=== PATIENT | female | born 2000 | race Caucasian/White ===

== ENCOUNTER → 2020-06-13 09:33 | Outpatient (BNVA) | payer BC, MEDICAID, SELFPAY | PROVIDERS: Family Provider Nurse Practitioner Family; PCP Nurse Practitioner Family; Visit Provider Obstetrics & Gynecology | DX: Z34.93 Encounter for supervision of normal pregnancy, unspecified, third trimester (principal) | CPT/HCPCS: 81000 ==

== ENCOUNTER → 2020-07-02 10:12 | Outpatient (BNVA) | payer BC, MEDICAID, SELFPAY | PROVIDERS: Family Provider Nurse Practitioner Family; PCP Nurse Practitioner Family; Visit Provider Obstetrics & Gynecology | DX: Z34.90 Encounter for supervision of normal pregnancy, unspecified, unspecified trimester (principal); Z34.80 Encounter for supervision of other normal pregnancy, unspecified trimester; Z34.93 Encounter for supervision of normal pregnancy, unspecified, third trimester | CPT/HCPCS: 81000; 87081; 87086 ==

== ENCOUNTER → 2020-07-09 09:56 | Outpatient (BNVA) | payer BC, MEDICAID, SELFPAY | PROVIDERS: Family Provider Nurse Practitioner Family; PCP Nurse Practitioner Family; Visit Provider Obstetrics & Gynecology | DX: O26.849 Uterine size-date discrepancy, unspecified trimester (principal); Z3A.37 37 weeks gestation of pregnancy | CPT/HCPCS: 81000 ==

== ENCOUNTER → 2020-07-13 16:07 | Outpatient (BNVA) | payer BC, MEDICAID, SELFPAY | PROVIDERS: Family Provider Nurse Practitioner Family; PCP Family Medicine; Visit Provider Obstetrics & Gynecology | DX: Z34.93 Encounter for supervision of normal pregnancy, unspecified, third trimester (principal); Z11.52 Encounter for screening for COVID-19 | CPT/HCPCS: 87635 ==

== ENCOUNTER → 2020-07-16 09:19 | Outpatient (BNVA) | payer BC, MEDICAID, SELFPAY | PROVIDERS: Family Provider Nurse Practitioner Family; PCP Family Medicine; Visit Provider Obstetrics & Gynecology | DX: O26.849 Uterine size-date discrepancy, unspecified trimester (principal); Z3A.38 38 weeks gestation of pregnancy | CPT/HCPCS: 81000 ==

== ENCOUNTER → 2020-07-23 09:10 | Outpatient (BNVA) | payer BC, MEDICAID, SELFPAY | PROVIDERS: Family Provider Nurse Practitioner Family; PCP Family Medicine; Visit Provider Obstetrics & Gynecology | DX: Z34.93 Encounter for supervision of normal pregnancy, unspecified, third trimester (principal) | CPT/HCPCS: 81000 ==

== ENCOUNTER 2020-07-26 11:55 | Inpatient (IN) | payer BC, MEDICAID, SELFPAY ==
[2020-07-26] VITALS (46 sets, daily range): BP systolic 101–146; BP diastolic 55–86; PULSE 76–141; RESP 16; TEMP 36.5–37.6; O2SAT 98–100; BMI 34.4
[2020-07-26] MEDS: dextrose 5%-lactated ringers 1,000 ML 125 ML IV (13:11)
[2020-07-26] MEDS: oxytocin 30 UNIT/500 ML BAG IV (13:15)
[2020-07-26 14:34] LABS: Basophils % 0.3 %; Eosinophils # 0.1 10^3/uL (0.0-0.8); Hematocrit 33.4 % (37.0-47.0); Hemoglobin 10.8 g/dL (11.5-15.3); Lymphocytes % 15.5 %; Mean Corpuscular HGB Conc 32.3 g/dL (30.0-36.0); Mean Corpuscular Hemoglobin 29.1 pg (28.0-34.0); Mean Platelet Volume 13.5 fL (7.4-10.4); Monocytes % 8.2 %; Neutrophils # 9.43 10^3/uL (1.8-8.0); Neutrophils % 74.3 %; Nucleated Red Blood Cells % 0 %; Platelet Count 194 10^3/cmm (130-400); Red Blood Count 3.71 10^6/uL (4.1-5.3); Red Cell Distribution Width 13.8 % (12.1-15.1); White Blood Count 12.7 10^3/uL (4.5-13.0)
[2020-07-26] MEDS: lactated ringers 1,000 ML 999 ML IV (17:35)
--- NOTE | 2020-07-26 18:48 | P.ANESASSM_ITS ---
Pre-Anesthetic Assessment Pre-Anesthetic Assessment: Height/Weight: Height 1.73 m Weight 102.965 kg Temp Pulse BP Pulse Ox 99.7 F H 104 H 126/68 100 07/26/20 18:27 07/26/20 18:44 07/26/20 18:44 07/26/20 18:36 Was Beta Caroline taken within 24 hours: N/A Was Clonidine taken within 24 hours: N/A Social: Social History: No alcohol and No tobacco Exam: Pre-Anes Outpt Exam: alert, oriented x 3, clear to auscultation bilaterally and regular rate & rhythm Airway: Submandibular: WNL Cervical ROM: WNL MP: 2 Dentition: Full History/ROS: No significant history except as noted GI: GI: GERD Anesthetic Plan: ASA status: 2 Other: Labor epidural Risk of > 500 ml blood loss (7ml/kg in children): No Meds/Allergies Current Medications: Current Medications Generic Name Dose Route Start Last Admin Trade Name Freq PRN Reason Stop Dose Admin Dextrose/Lactated Ringer's 1,000 mls @ 125 m ls/hr 07/26/20 12:30 07/26/20 13:11 Dextrose 5%-Lact ated Ringers IV 125 mls/hr .Q8H DENIA Administration Oxytocin 30 unit in 500 ml s @ 1 mls/hr 07/26/20 12:30 07/26/20 16:51 Pitocin IV 9 milliunit/min .Q24H DENIA 9 mls/hr Titration Protocol 1 MILLIUNIT/MIN PFSH Anesthesia PFSH: Family History Father Asthma Grandmother Breast cancer Paternal CAD (coronary artery disease) Maternal Family/Other Breast cancer Aunt Mother Psychiatric illness bipolar, addiction Alcohol abuse Depression Anxiety Grandfather Pancreatic cancer maternal Social History (Updated 07/23/20 @ 09:04 by Conchita Guzman) Quit status (tobacco): has quit using tobacco Former quit date comment: Previous vape user Alcohol intake: never Female Reproductive History: : 1 Data Anesthesia CBC & Chem 7: 07/26/20 12:50 Other Labs: Laboratory Results - last 48 hr 07/26/20 12:50 WBC 12.7 RBC 3.71 L Hgb 10.8 L Hct 33.4 L MCV 90.0 MCH 29.1 MCHC 32.3 RDW 13.8 Plt Count 194 MPV 13.5 H Neut % (Auto) 74.3 Lymph % (Auto) 15.5 [place] % (Auto) 8.2 Eos % (Auto) 1.0 Baso % (Auto) 0.3 Neut # (Auto) 9.43 H Lymph # (Auto) 2.0 [place] # (Auto) 1.0 H Eos # (Auto) 0.1 Baso # (Auto) 0.0 Nucleated RBC % (auto) 0 Nucleated RBCs # 0.0 Cardiac Studies: No Data to Display
--- NOTE | 2020-07-26 18:49 | ANES.PROC ---
Anesthesia Procedures Procedure/Date: 07/26/20 Epidural: Time Out Performed: Yes Consents Signed: Procedure Consent Consent: requested by attending/covering physician, from patient, risks and benefits reviewed and patient agrees to proceed Lumbar Level: L3-L4 Epidural position: sitting Epidural procedure: sterile prep of area, 1% lidocaine to numb the area, 18 g needle, neg for paresthesia, test dose given, 1.5% xylocaine 1:200k epi, placed PCEA, no systemic response, sterile dressing applied and 0.2% Ropiavacaine @ mls/hr (13) Additional Comments: ALEXY at 5cm, cath at 10cm. Bolused 5mls of 2% lidocaine PF.
--- NOTE | 2020-07-26 19:05 | PM.OBGYHP ---
Providers/Chief Complaint Admitting Physician: Tish Jennings MD Primary Care Provider: Mars Prabhakar MD Chief Complaint: IUP HPI CLINICAL RESEARCH MANAGER History of Present Illness Priscila Posadas is a 20 year old G1 female at 39 3/7 weeks who is being admitted for induction of labor. Her is complicated by large for gestational age and borderline polyhydramnios. Present Details : 1 Para: 0 Labs Rubella: Immune RPR: Negative GBS: Negative Review of Systems General: Reports: 10 or more systems reviewed and unremarkable except in HPI and below Medications/Allergies Home Medications Medication Instructions Recorded Confirmed Last Taken Type vitamins no.119-iron tab PO 06/06/20 07/23/20 Unknown History fumarate 29 mg-folic acid 1 mg tablet esomeprazole magnesium 20 mg 20 mg PO DAILY 06/13/20 07/23/20 Unknown History capsule,delayed release Allergies Allergy/AdvReac Type Severity Reaction Status Date / Time No Known Allergies Allergy Verified 07/23/20 09:03 PFSH CLINICAL RESEARCH MANAGER PFSH: Family History Father Asthma Grandmother Breast cancer Paternal CAD (coronary artery disease) Maternal Family/Other Breast cancer Aunt Mother Psychiatric illness bipolar, addiction Alcohol abuse Depression Anxiety Grandfather Pancreatic cancer maternal Social History (Updated 07/23/20 @ 09:04 by Conchita Guzman) Quit status (tobacco): has quit using tobacco Former quit date comment: Previous vape user Alcohol intake: never Other Female Reproductive History: Hx Age of Menarche: 11 Duration of menses: other (differs everytime) Date of Last Menstrual Period: 10/24/19 Cycle Length: irregular Menstrual flow: normal/abnormal: normal History History History 1 Term 0 Miscarriages/Ectopic 0 0 Living Children 0 Care KIERAN Calculator Estimated Delivery Date Method Current WG Current Estimate 07/30/20 LMP (Certain) 39w 3d Other Estimates 07/17/20 Ultrasound #1 41w 2d Expected Delivery Route/Plan vaginal Specific Issues/Plans limited care Vitals/I&O/Wt Last Vital Signs Temp 99.7 F H 07/26/20 18:27 Pulse 102 H 07/26/20 18:56 BP 111/57 07/26/20 18:56 Pulse Ox 100 07/26/20 18:36 07/26/20 07/26/20 07/26/20 06:59 14:59 22:59 Intake Total 4.20 / 4.20 13.850 / 18.050 Balance 4.20 / 4.20 13.850 / 18.050 Weight last 48 hrs Weight 227 lb Physical Exam Const: COMMON NORMALS: no acute distress, patient oriented x3, no limitations, healthy appearing, alert and well nourished GENERAL APPEARANCE: cooperative, comfortable, well kempt and well developed ORIENTATION/CONSCIOUSNESS: Yes awake, Yes oriented to person, Yes oriented to place and Yes oriented to time Neck/C-Spine: COMMON NORMALS: full ROM, no lymphadenopathy and supple Resp: COMMON NORMALS: normal respiratory effort, No retractions, No use of accessory muscles and clear to auscultation bilaterally EFFORT & INSPECTION: Yes able to speak in complete sentences Cardio: COMMON NORMALS: no JVD, regular rate and regular rhythm RATE: regular rate RHYTHM: regular rhythm GI: COMMON NORMALS: Normal to inspection, nondistended, normoactive bowel sounds present : MANUAL OB EXAM: dilated 3 cm, effaced 75% and station 0 Extremity: COMMON NORMALS: normal to inspection, full ROM and no clubbing, cyanosis or edema Psych: COMMON NORMALS: mental status grossly normal, Normal thought process present, cooperative, normal affect and speech normal APPEARANCE: Yes grossly normal and Yes well kempt ATTITUDE: Yes calm and Yes engaged ACTIVITY/MOTOR BEHAVIOR: Yes appropriate eye contact SPEECH: Yes normal speech Data : 07/26/20 12:50 A&P Assessment and plan (1) Normal in third trimester: admit for pitocin induction anticipate Status: Acute Attestations Medical Necessity Statement*: The patient is admitted inpatient one way or another, this baby will be born during this visit. Coding Level of Care Code Acute Wood Fuel Pelletizer for Chg Fwd Diagnoses Normal in third trimester Z34.93
[2020-07-26] MEDS: ondansetron 2 mg/ML SDV 2 mL 4 MG IVP (20:44)
[2020-07-27] VITALS (29 sets, daily range): BP systolic 99–140; BP diastolic 54–86; PULSE 20–157; RESP 16; TEMP 35.5–37.8; O2SAT 82
--- NOTE | 2020-07-27 00:46 | PM.DELIVERY ---
Delivery Note: Date of delivery: July 27, 2020 Pre-delivery diagnoses: IUP at 39 weeks, borderline polyhydramnios, large for gestational age Post-delivery diagnoses: same with macrosomia Procedure: Op report anesthesia: Epidural Delivering Physician: artemio Estimated blood loss (mL): 25 Delivery: The patient had complete cervical dilation and began pushing. She had spontaneous delivery of a term female in the CADY presentation, under epidural anesthesia, and over an intact perineum. The head delivered in the shoulders and body followed atraumatically. The baby was placed onto the mother's abdomen. The cord was allowed to pulse for 1 minute and then it was clamped and cut. Cord blood was obtained. An intact placenta delivered spontaneously. Inspection revealed a second-degree vaginal laceration. This was repaired in the usual fashion. There was excellent hemostasis post delivery. Apgars on baby 9 at 1 minute and 9 at 5 minutes. Weight on baby 10 pounds 1 ounce. Estimated blood loss 25 mL. Mother and were stable post delivery. A&P Assessment and plan (1) Normal in third trimester: Status: Acute Coding Level of Care Code Acute Preparation Room Worker for Chg Fwd Diagnoses Normal in third trimester Z34.93
[2020-07-27] MEDS: prenatal vitamin Capsule 1 CAP PO (08:42)
[2020-07-27] MEDS: docusate sodium 100 mg Capsule PO ×2 (08:42→18:29)
[2020-07-27] MEDS: ibuprofen 800 mg tablet PO ×3 (08:42→21:05)
[2020-07-27 14:02] LABS: Hematocrit 30.6 % (37.0-47.0); Hemoglobin 9.8 g/dL (11.5-15.3); Mean Corpuscular Hemoglobin 29.1 pg (28.0-34.0); Mean Corpuscular Volume 90.8 fL (81-99); Mean Platelet Volume 12.9 fL (7.4-10.4); Platelet Count 175 10^3/cmm (130-400); Red Blood Count 3.37 10^6/uL (4.1-5.3); Red Cell Distribution Width 13.9 % (12.1-15.1); White Blood Count 14.1 10^3/uL (4.5-13.0)
--- NOTE | 2020-07-27 22:24 | PC.NURSE ---
pt requested a nipple shield due to nipple pain when nursing. Pt had a Hakaa style shield at bedside. We discussed reasons nipple knutson are used, different styles, why she may be feeling discomfort. pt chose to try a madela nipple shield. Baby was put to the breast with a 24mm shield, baby did suckle some but was very agitated at the breast. After several attempts I asked mom if we could try without the shield again. She repositioned baby and with hand over hand she was able to achieve a more comfortable latch. We discussed positioning of baby, what to look for in a deep latch.
[2020-07-28] VITALS (8 sets, daily range): BP systolic 133–143; BP diastolic 76–89; PULSE 72–105; RESP 16–18; TEMP 36.1–36.8; O2SAT 98–99
--- NOTE | 2020-07-28 07:56 | PC.NURSE ---
Patient pressed call light and telegraphic typewriter operator chief to room. Patient requesting a physician come in and see her this morning to send her home as she is very uncomfortable being in the hospital right now. Patient states she needs to be at home where she has bottles because her nipples are very sore. Patient offered and provided bottles at this time. Will continue to monitor and follow up as needed.
[2020-07-28] MEDS: ibuprofen 800 mg tablet PO (08:48)
[2020-07-28] MEDS: prenatal vitamin Capsule 1 CAP PO (08:48)
[2020-07-28] MEDS: docusate sodium 100 mg Capsule PO (08:48)
--- NOTE | 2020-07-28 15:01 | PM.DCS ---
Discharge Providers Date of Admission: 07/26/20 11:55 Date of Discharge: July 28, 2020 Attending Provider at Admission: Tish Jennings MD Attending Provider at Discharge: Tish Jennings MD Primary Care Provider: Mars Prabhakar MD Diagnoses at Discharge Discharge Diagnosis (1) Normal in third trimester: Status: Acute Reason for Visit Reason for Visit: IUP Brief History: Admission diagnosis: 20-year-old 1 para 0 at 39 weeks and 3 days Active labor Mild anemia Discharge diagnosis: Status post vaginal delivery Mild anemia HOSPITAL COURSE: She underwent an uncomplicated vaginal delivery on 07/27/2020--please see Dr. Jennings's note for details.. She did well on day 0 and was ambulating well, tolerating regular diet, voiding freely, passing flatus. She was breast and bottlefeeding without difficulty and bonding well with her daughter. Pain was well-controlled with by mouth pain medication. She denied nausea, vomiting, fever, chills, shortness of breath, leg pain. She had moderate vaginal bleeding. On day # 1 she continued to do well with stable vital signs and stable hemoglobin at 9.8. She was discharged home on day 1 in a stable condition, as she desired early discharge. Warning signs for endometritis, mastitis, DVT/PE were reviewed with her. Post delivery activity restrictions were also reviewed with her at all her questions were answered to her satisfaction. EXAM AT DISCHARGE: Gen.: No acute distress Heart: S1-S2 heard, regular rate and rhythm Lungs: Clear to auscultation bilaterally Abdomen: Soft, fundus firm below umbilicus, Legs: No calf tenderness, +1 bilateral pitting pedal edema. CONDITION AT DISCHARGE: Stable This documentation was created by [employer] forging dies final finisher software (known for inherent forging dies final finisher error). Every effort was made to assure accuracy of forging dies final finisher. Any obvious errors or omissions should be clarified with the author of the document. Physical Exam Urinary Catheter Management^: Walker: Cath Placed During This Visit: yes, but has since been removed by the nurse Reason for Continuing Indwelling Catheter: Required Immobilization for Trauma or Surgery or Anesthesia Urinary Catheter Date of Insertion: 07/26/20 Urinary Catheter Time of Insertion: 19:05 Date Urinary Catheter Removed: 07/26/20 Time Urinary Catheter Discontinued: 23:25 Discharge Data Vitals: Last Vital Signs Temp 98.3 F 07/28/20 13:15 Pulse 92 07/28/20 14:56 Resp 16 07/28/20 13:15 BP 143/88 07/28/20 14:56 Pulse Ox 98 07/28/20 13:15 Discharge Plan Discharge Patient Disposition: Home Condition: Stable Prescriptions: New ibuprofen 800 mg tablet 800 mg PO Q8H Qty: 30 RF: 0 hydrocodone-acetaminophen 5-325 mg tablet 1 tab PO Q6H Qty: 15 RF: 0 docusate sodium 100 mg Capsule 100 mg PO BID PRN (Reason: constipation) Qty: 30 RF: 0 Continued esomeprazole magnesium [Nexium 24HR] 20 mg capsule,delayed release(DR/EC) 20 mg PO DAILY RF: 0 PNV 119-iron fum-folic acid 29 mg iron- 1 mg tablet PO RF: 0 Discharge Orders: Discharge Order (Routine); Ordered 07/28/20 Ordered By: Walt Lr Referrals: Tish Jennings MD [Physician] - (6 weeks pp) Patient Instructions: Vitamins (By mouth), Your Baby (DC), Pre-eclampsia and Eclampsia (DC), Bleeding (DC), OB Discharge Report, OB Food/Drug Interaction Guide, OB Proud Parent Packet, OB Vaginal Deliveries, Abnormal Bleeding Activity Restrictions/Additional Instructions: no heavy lifting and pelvic rest x 6 weeks Discharge Attestations Time Spent in Discharge Care*: greater than 30 min Quality Metrics Clinical Quality Measures During this hospital stay, did patient experience: None Coding Level of Care Code Acute Chg FW DC note Diagnoses Normal in third trimester Z34.93
== END 2020-07-28 15:15 | disposition home or self-care (01) | DRG 807 ==
PROVIDERS: Admitting Provider Obstetrics & Gynecology; PCP Family Medicine; Visit Provider Obstetrics & Gynecology
DX: O40.3XX0 Polyhydramnios, third trimester, not applicable or unspecified (principal); Z37.0 Single live birth; Z3A.39 39 weeks gestation of pregnancy; O36.63X0 Maternal care for excessive fetal growth, third trimester, not applicable or unspecified; O70.1 Second degree perineal laceration during delivery; O99.02 Anemia complicating childbirth; D64.9 Anemia, unspecified
CPT/HCPCS: 36415; 51702; 59025; 59409; 85025; 85027; 98960; J2405; J2795

== ENCOUNTER → 2020-09-10 09:31 | Outpatient (BNVA) | payer BC, MEDICAID, SELFPAY | PROVIDERS: PCP Family Medicine; Visit Provider Obstetrics & Gynecology | DX: Z30.9 Encounter for contraceptive management, unspecified (principal) | CPT/HCPCS: 81025 ==

== ENCOUNTER → 2020-10-25 14:35 | Outpatient (BNVA) | payer BC, MEDICAID, SELFPAY | PROVIDERS: PCP Family Medicine; Visit Provider Obstetrics & Gynecology | DX: N89.8 Other specified noninflammatory disorders of vagina (principal); Z30.431 Encounter for routine checking of intrauterine contraceptive device; F41.9 Anxiety disorder, unspecified; F32.9 Major depressive disorder, single episode, unspecified | CPT/HCPCS: 87481; 87512; 87798; 87799 ==

== ENCOUNTER 2020-11-01 15:15 | Emergency (ER) | payer BC, MEDICAID, SELFPAY ==
[2020-11-01 15:28] VITALS: BP 121/77; PULSE 80; RESP 18; TEMP 37.1; O2SAT 96; BMI 29.2
--- NOTE | 2020-11-01 16:30 | ED_ITS ---
HPI - Psych General: Chief Complaint: Psychiatric Symptoms Stated Complaint: psych eval, anxeity stress Time Seen by Provider: 11/01/20 15:47 History of Present Illness: HPI Narrative: The patient is a 20-year-old female with past medical history depression who comes to the ER complaining of emotions out of control that she says she cannot control. She says her OB is given her BuSpar with no improvement of her symptoms and her depression seems to be worsen ing. She is 3 months . She says she is yelling at her and her infant child all the time. The child is bottlefeeding. She denies suicidal and homicidal ideations as well as psychotic symptoms. She says her biological mother is a crack-head and bipolar and wonders if she could be developing a bipolar disorder. Discussed with her that these are not reasons to be admitted to the stress unit and that I recommend outpatient mental health for her. She was given information and stable for discharge. Denies alcohol and drugs. MD complaint: feels depressed Duration: constant History of same: Yes Relieving factors: none Associated psychiatric symptoms: depression Associated symptoms: Reports depression; Deny auditory hallucinations, visual hallucinations, delusions, homicidal ideation or suicidal ideation Review of Systems General: Reports: 10 or more systems reviewed and unremarkable except in HPI and below Const: Denies: fatigue Eyes: Denies: change in vision, blurry vision or eye redness ENMT: Denies: throat pain, swelling of lips/tongue, ear or mastoid pain or nasal congestion Card: Denies: chest pain, palpitations, irregular heart rhythm, edema, dyspnea on exertion or orthopnea Resp: Denies: dyspnea, productive cough or non-productive cough GI: Denies: abdominal pain, diarrhea or GI cramping : Denies: flank pain, difficulty voiding, urinary frequency or urinary urgency Musc: Denies: neck pain, back pain, extremity pain, joint pain, joint redness, limited range of motion or muscle weakness Skin/Breast: Denies: rash, pruritus, erythema, skin pain or skin tenderness Neuro: Denies: headache(s), numbness in extremities, weakness in extremities, sensory changes, difficulty walking, dizziness, confusion or Slurred speech present Psych: Reports: anxiety, depression and mood swings; Denies: visual hallucinations, auditory hallucinations, suicidal ideation or homicidal ideation Endo: Denies: polyuria All/Imm: Denies: urticaria, throat swelling or tongue swelling PFSH ED PFSH: Family History Father Asthma Grandmother Breast cancer Paternal CAD (coronary artery disease) Maternal Family/Other Breast cancer Aunt Mother Psychiatric illness bipolar, addiction Alcohol abuse Depression Anxiety Grandfather Pancreatic cancer maternal Social History (Updated 10/25/20 @ 12:52 by Kiersten Mills LPN) Smoking and tobacco status: current every day smoker e-cigarettes E-Cigarette Details: vaporizer device and with nicotine Alcohol intake: never Physical Exam Const: COMMON NORMALS: no acute distress, average body habitus, patient oriented x3, no limitations, healthy appearing, alert and well nourished GENERAL APPEARANCE: cooperative, comfortable, well kempt and well developed ORIENTATION/CONSCIOUSNESS: Yes awake, Yes oriented to person, Yes oriented to place and Yes oriented to time HENMT: COMMON NORMALS: normocephalic, external ears normal and Normal external nose present HEAD & SCALP: normal to inspection and normocephalic NOSE: Normal external nose present EXTERNAL EAR: Yes external ears normal MOUTH: Normal oral and palatal mucosa present THROAT: posterior oropharynx normal Eye: COMMON NORMALS: Equal, round and reactive pupils present and EOMs intact bilaterally GENERAL EYE: appearance normal, both eyes and all related structures PUPIL: Yes Equal, round and reactive pupils present Neck/C-Spine: COMMON NORMALS: full ROM, no lymphadenopathy, no meningeal signs and no JVD GENERAL: Yes normal visual inspection Lymph: LYMPHATIC: no lymphadenopathy noted Chest: COMMONS NORMALS: normal inspection of the chest and normal palpation of entire chest wall Resp: COMMON NORMALS: normal respiratory effort, No retractions, No use of accessory muscles, clear to auscultation bilaterally and percussion normal EFFORT & INSPECTION: Yes able to speak in complete sentences AUSCULTATION: clear to auscultation bilaterally PERCUSSION: percussion normal Cardio: COMMON NORMALS: no JVD, regular rate, regular rhythm, S1 normal heart sound present, S2 normal heart sound present and Peripheral pulses 2+ throughout RATE: regular rate RHYTHM: regular rhythm HEART SOUNDS: S1 normal heart sound present and S2 normal heart sound present PERIPHERAL PULSES: Peripheral pulses 2+ throughout GI: COMMON NORMALS: Normal to inspection, nondistended, normoactive bowel sounds present, Soft to palpation, non-tender and no masses INSPECTION: Yes normal to inspection PALPATION: Yes Soft to palpation : COMMON NORMALS: Yes no CVA tenderness BLADDER/KIDNEY EXAM: Yes no CVA tenderness Back/Pelvis: COMMON NORMALS: no CVA tenderness, thoracic and lumbar spine normal to inspection, no thoracic nor lumbar tenderness and thoraco-lumbar ROM normal Extremity: COMMON NORMALS: normal to inspection, full ROM, capillary refill normal, no joint enlargement and no pedal edema GENERAL: Yes normal exam except as noted Neuro: COMMON NORMALS: patient oriented x3, CN's II-XII intact bilaterally, moves all extremities, no focal motor deficits, no sensory deficits noted and gait normal SENSORIUM/ORIENTATION: Yes alert, Yes oriented to person, Yes oriented to place and Yes oriented to time MENINGEAL SIGNS: Yes no meningeal signs Psych: COMMON NORMALS: mental status grossly normal, Normal thought process present, cooperative, normal affect and speech normal APPEARANCE: Yes well kempt ATTITUDE: Yes calm SPEECH: Yes normal speech THOUGHT PROCESS: Normal thought process present THOUGHT CONTENT: No Suicidality present, No Homicidality present, No delusions and No Hallucination(s) present Skin: COMMON NORMALS: no rashes or lesions noted GENERAL SKIN EXAM: no rashes or lesions noted Course Vital Signs: Vital signs: Vital Signs Temperature 98.8 F 11/01/20 15:28 Pulse Rate 80 11/01/20 15:28 Respiratory Rate 18 11/01/20 15:28 Blood Pressure 121/77 11/01/20 15:28 Pulse Oximetry 96 11/01/20 15:28 MDM - Psych MDM Narrative: Medical decision making narrative: The patient is likely experiencing a work the patient is likely experiencing a worsening of her chronic depression from depression. She is taking BuSpar. Recommended she follow-up with mental health and gave her information to help get clinic appointments there. Return to the ER at anytime with worsening symptoms, suicidal thoughts, homicidal thoughts, psychotic symptoms. Discussed with Dr. Ramey who agrees outpatient follow-up is appropriate for her. Discharge Plan Discharge Patient Disposition: Home Clinical Impression: Anxiety and depression Condition: Stable Prescriptions: No Action Mirena 20 mcg/24 hours (6 yrs) 52 mg intrauterine device intrauterine RF: 0 buspirone 5 mg tablet 5 mg PO BID Qty: 60 RF: 6 Discharge Orders: Discharge ED (Routine); Ordered 11/01/20 Ordered By: Samir Husain Referrals: Mars Prabhakar MD [Primary Care Provider] - Discharge Diet: Advance as tolerated Discharge Activity: Resume usual activity Patient Instructions: Depression (ED), Opioid Safety Activity Restrictions/Additional Instructions: You are likely suffering from post depression with worsening of your chronic depression. Please follow-up with the mental health information we have given you for outpatient therapy and treatment. Return to the ER at anytime with worsening symptoms such as suicidal thoughts, homicidal thoughts, or psychotic symptoms of hearing or seeing things. Coding Level of Care Code ED Tab Machine Operator for Chg Fwd Exam Comprehensive
--- NOTE | 2020-11-02 11:53 | DCPLANNER ---
visual presentation manager had message to speak with patient about out patient psychiatry. I spoke with patient and explained to her that she would need to go to [facility] and fiber picker initial paperwork to fill out and turn in. Once that was turned in, then she would have a phone assessment scheduled so that services could be started. visual presentation manager emailed patients information to Jacqueline Serrano at [facility] to be looking for patients information.
== END 2020-11-01 17:01 | disposition home or self-care (01) ==
PROVIDERS: Emergency Provider Family Medicine; PCP Family Medicine
DX: F32.9 Major depressive disorder, single episode, unspecified (principal); F41.9 Anxiety disorder, unspecified; F17.290 Nicotine dependence, other tobacco product, uncomplicated
CPT/HCPCS: 99283

== ENCOUNTER → 2020-12-07 13:36 | Outpatient (BNVA) | payer BC, MEDICAID, SELFPAY | PROVIDERS: PCP Family Medicine; Visit Provider Obstetrics & Gynecology | DX: R10.9 Unspecified abdominal pain (principal); R39.9 Unspecified symptoms and signs involving the genitourinary system; N89.8 Other specified noninflammatory disorders of vagina | CPT/HCPCS: 81000; 87070; 87205; 87481; 87491; 87512; 87591; 87661; 87798; 87799 ==

== ENCOUNTER → 2020-12-20 13:20 | Outpatient (BNVA) | payer BC, MEDICAID, SELFPAY | PROVIDERS: PCP Family Medicine; Visit Provider Psychiatry & Neurology Psychiatry | DX: F43.20 Adjustment disorder, unspecified (principal) | CPT/HCPCS: 90792 ==

== ENCOUNTER 2021-07-24 06:48 | Emergency (ER) | payer BC, MEDICAID, SELFPAY ==
--- NOTE | 2021-07-24 06:54 | XR_ITS ---
WS: [id number] XR chest 1V portable [id number] REASON FOR EXAM: dyspnea/cough FINDINGS: The heart and mediastinum are within normal limits. Calcified granulomatous disease in both hemithoraces. No active pulmonary parenchymal or pleural disease. Bony thorax is intact without significant abnormality. XR/XR chest 1V portable [id number] IMPRESSION: No significant chest abnormality.
[2021-07-24 06:55] VITALS: BP 123/81; PULSE 130; RESP 18; TEMP 38.4; O2SAT 98; BMI 21.8
[2021-07-24 07:07] LABS: Basophils % 0.4 %; Eosinophils % 0.4 %; Hemoglobin 14.4 g/dL (11.5-15.3); Lymphocytes # 1.3 10^3/uL (0.8-4.8); Lymphocytes % 18.6 %; Mean Corpuscular HGB Conc 35.1 g/dL (30.0-36.0); Mean Corpuscular Volume 93.8 fl (81-99); Mean Platelet Volume 11.9 fL (7.4-10.4); Monocytes # 1.1 10^3/uL (0.2-0.9); Monocytes % 15.7 %; Neutrophils # 4.59 10^3/uL (1.8-7.7); Neutrophils % 63.5 %; Nucleated Red Blood Cells % 0 %; Platelet Count 234 10^3/cmm (130-400); Red Blood Count 4.37 10^6/uL (4.1-5.3); Red Cell Distribution Width 12.5 % (12.1-15.1); White Blood Count 7.2 10^3/uL (4.0-10.0)
[2021-07-24 07:32] LABS: Anion Gap 15.5 (5-19); Blood Urea Nitrogen 9 mg/dL (6-20); Calcium 9.1 mg/dL (8.5-10.5); Carbon Dioxide 24 mmol/L (22-29); Chloride 101 mmol/L (98-107); Glomerular Filtration Rate 62.7 mL/min (90-130); Glucose 120 mg/dL (65-115); Osmolality Calculated 284 mOsm/kg (285-295); Potassium 3.5 mmol/L (3.5-5.1); Sodium 137 mmol/L (136-145)
[2021-07-24 07:57] VITALS: BP 113/72; PULSE 101; RESP 22; O2SAT 98
--- NOTE | 2021-07-24 08:17 | W.ED.GENADLT ---
HPI - General Adult General: Chief complaint: General Medical Stated complaint: SOB, fever Time Seen by Provider: 07/24/21 06:54 Source: patient Mode of arrival: ambulatory Limitations: no limitations History of Present Illness: 21-year-old female presents emergency room complaining of fever shortness of breath and nonproductive cough along with myalgias. Fever nonproductive cough she is not had any diarrhea. No dysuria urgency or frequency. This began 2 days ago is gotten progressively worse. She has no history of any chronic respiratory problems. She has not previously been vaccinated for COVID nor has she previously tested positive. Onset (ago): day(s) (2) Severity: moderate Quality: burning Relieving factors: none Associated symptoms: Reports chest pain, cough and nausea; Deny confusion, diaphoresis, decreased appetite, dyspnea, fevers/chills, headache(s), malaise, rash, palpitations, seizures, short of breath, syncope, vomiting or weakness Treatments prior to arrival: none Review of Systems Const: Denies: malaise or diaphoresis ENMT: Reports: throat pain, nasal discharge and nasal congestion; Denies: ear or mastoid pain or ear discharge Card: Reports: chest pain; Denies: palpitations or syncope Resp: Denies: dyspnea GI: Reports: nausea; Denies: abdominal pain or vomiting : Denies: flank pain, difficulty voiding, dysuria, urinary frequency or urinary urgency Skin/Breast: Denies: rash Neuro: Denies: headache(s) or confusion PFSH ED PFSH: Medical History Adjustment disorder Family History Father Asthma Grandmother Breast cancer Paternal CAD (coronary artery disease) Maternal Family/Other Breast cancer Aunt Mother Psychiatric illness bipolar, addiction Alcohol abuse Depression Anxiety Grandfather Pancreatic cancer maternal Social History Smoking and tobacco status: current every day smoker e-cigarettes E-Cigarette Details: vaporizer device and with nicotine Alcohol intake: never Physical Exam Const: GENERAL APPEARANCE: cooperative and comfortable ORIENTATION/CONSCIOUSNESS: Yes awake, Yes oriented to person, Yes oriented to place and Yes oriented to time HENMT: COMMON NORMALS: normocephalic, atraumatic and hearing grossly normal bilaterally HEAD & SCALP: normocephalic and atraumatic Neck/C-Spine: COMMON NORMALS: no JVD Resp: COMMON NORMALS: normal respiratory effort, No retractions, No use of accessory muscles and clear to auscultation bilaterally AUSCULTATION: clear to auscultation bilaterally Cardio: COMMON NORMALS: no JVD, regular rate, regular rhythm and No murmurs present (Cardio) RATE: regular rate RHYTHM: regular rhythm GI: COMMON NORMALS: Soft to palpation and No hepatosplenomegaly present AUSCULTATION: Yes normoactive bowel sounds PALPATION: Yes Soft to palpation, No Tenderness to palpation present (GI), No Guarding due to palpation present (GI) and Yes No hepatosplenomegaly present Extremity: COMMON NORMALS: normal to inspection, capillary refill normal, no clubbing, cyanosis or edema, no calf tenderness and no pedal edema Neuro: SENSORIUM/ORIENTATION: Yes oriented to person, Yes oriented to place and Yes oriented to time Skin: COMMON NORMALS: no rashes or lesions noted GENERAL SKIN EXAM: no rashes or lesions noted Course Vital Signs: Vital signs: Vital Signs Temperature 101.1 F H 07/24/21 06:55 Pulse Rate 82 07/24/21 09:00 Respiratory Rate 24 H 07/24/21 09:00 Blood Pressure 113/66 07/24/21 09:00 Pulse Oximetry 96 07/24/21 09:00 MDM - General Adult Medical Decision Making Influenza positive. Start Tamiflu supportive cares also gave prescription for albuterol inhaler to use as needed Medical Records I reviewed the patient's medical records. Lab Data I reviewed the patient's lab results. : 07/24/21 07:03 07/24/21 07:03 Radiology Impressions Chest X-Ray 07/24/21 06:54 IMPRESSION: No significant chest abnormality. Laboratory Results WBC 7.2 10^3/uL (4.0-10.0) 07/24/21 07:03 RBC 4.37 10^6/uL (4.1-5.3) 07/24/21 07:03 Hgb 14.4 g/dL (11.5-15.3) 07/24/21 07:03 Hct 41.0 % (37.0-47.0) 07/24/21 07:03 MCV 93.8 fl (81-99) 07/24/21 07:03 MCH 33.0 pg (28.0-34.0) 07/24/21 07:03 MCHC 35.1 g/dL (30.0-36.0) 07/24/21 07:03 RDW 12.5 % (12.1-15.1) 07/24/21 07:03 Plt Count 234 10^3/cmm (130-400) 07/24/21 07:03 MPV 11.9 fL (7.4-10.4) H 07/24/21 07:03 Neut % (Auto) 63.5 % 07/24/21 07:03 Lymph % (Auto) 18.6 % 07/24/21 07:03 [place] % (Auto) 15.7 % 07/24/21 07:03 Eos % (Auto) 0.4 % 07/24/21 07:03 Baso % (Auto) 0.4 % 07/24/21 07:03 Neut # (Auto) 4.59 10^3/uL (1.8-7.7) 07/24/21 07:03 Lymph # (Auto) 1.3 10^3/uL (0.8-4.8) 07/24/21 07:03 [place] # (Auto) 1.1 10^3/uL (0.2-0.9) H 07/24/21 07:03 Eos # (Auto) 0.0 10^3/uL (0.0-0.8) 07/24/21 07:03 Baso # (Auto) 0.0 10^3/uL (0.0-0.1) 07/24/21 07:03 Nucleated RBC % (auto) 0 % 07/24/21 07:03 Nucleated RBCs # 0.0 /100WBC 07/24/21 07:03 Sodium 137 mmol/L (136-145) 07/24/21 07:03 Potassium 3.5 mmol/L (3.5-5.1) 07/24/21 07:03 Chloride 101 mmol/L (98-107) 07/24/21 07:03 Carbon Dioxide 24 mmol/L (22-29) 07/24/21 07:03 Anion Gap 15.5 (5-19) 07/24/21 07:03 BUN 9 mg/dL (6-20) 07/24/21 07:03 Creatinine 1.1 mg/dL (0.5-0.9) H 07/24/21 07:03 GFR Calculation 62.7 mL/min (90-130) L 07/24/21 07:03 Glucose 120 mg/dL (65-115) H 07/24/21 07:03 Calculated Osmolality 284 mOsm/kg (285-295) L 07/24/21 07:03 Calcium 9.1 mg/dL (8.5-10.5) 07/24/21 07:03 Urine Color Yellow (Yellow) 07/24/21 08:25 Urine Appearance Clear (CLEAR) 07/24/21 08:25 Urine pH 6 (5-7) 07/24/21 08:25 Ur Specific [place] 1.015 (1.005-1.030) 07/24/21 08:25 Urine Protein Neg (Negative) 07/24/21 08:25 Urine Glucose (UA) Norm (Normal) 07/24/21 08:25 Urine Ketones Negative (Negative) 07/24/21 08:25 Urine Blood Neg (Negative) 07/24/21 08:25 Urine Nitrate Negative (Negative) 07/24/21 08:25 Urine Bilirubin Neg (Negative) 07/24/21 08:25 Urine Urobilinogen 1 mg/dL (Negative) H 07/24/21 08:25 Ur Leukocyte Esterase Negative (Negative) 07/24/21 08:25 Urine RBC Rare /hpf (0-2) 07/24/21 08:25 Urine WBC Rare /hpf (0-5) 07/24/21 08:25 Ur Squamous Epith Cells 0-4 /hpf (0-5) H 07/24/21 08:25 Amorphous Sediment Not Reportable 07/24/21 08:25 Urine Bacteria Trace /hpf (NONE) 07/24/21 08:25 Urine Mucus Trace /hpf 07/24/21 08:25 Nasal Influ A H1 2009 PCR Not detected (NOT DETECT) 07/24/21 09:25 Coronavirus 229E (PCR) Not detected (NOT DETECT) 07/24/21 07:14 Influenza A (H1) PCR Not detected (NOT DETECT) 07/24/21 09:25 Influenza A (H3) PCR Detected (NOT DETECT) A 07/24/21 09:25 Influenza Type A (PCR) Detected (NOT DETECT) A 07/24/21 09:25 Influenza Type B (PCR) Not detected (NOT DETECT) 07/24/21 09:25 SARS-CoV-2 (PCR) Not detected (NOT DETECT) 07/24/21 07:14 Discharge Plan Discharge Patient Disposition: Home Condition: Stable Prescriptions: New albuterol sulfate 90 mcg/actuation HFA aerosol inhaler 2 inh INHALATION Q4H PRN (Reason: shortness of breath or wheezing) Qty: 18 0RF Tamiflu 75 mg capsule 75 mg PO BID 5 Days Qty: 10 0RF No Action Mirena 20 mcg/24 hours (6 yrs) 52 mg intrauterine device See Rx Instructions .ROUTE .COMPLEX 0RF Rx Instructions: intrauterinely as directed Excedrin Migraine 250-250-65 mg Tablet 3 tab PO Q6H PRN (Reason: Migraine Headache) 0RF Discharge Orders: Discharge ED (Routine); Ordered 07/24/21 Ordered By: Quique Merlos Referrals: Mars Prabhakar MD [Primary Care Provider] - Discharge Diet: Usual diet Discharge Activity: Increase activity as tolerated Patient Instructions: Opioid Safety Activity Restrictions/Additional Instructions: Supportive cares Tylenol and ibuprofen as needed. Tamiflu twice daily for 5 days. Coding Level of Care Code ED Pediatric Physiatrist for [place] Fwd Exam Comprehensive
[2021-07-24] MEDS: acetaminophen 500 mg Tablet 1000 MG PO (08:25)
[2021-07-24] MEDS: sodium chloride 0.9% 1,000 ML 999 ML IV ×2 (08:25→09:06)
[2021-07-24 09:00] VITALS: BP 113/66; PULSE 82; RESP 24; O2SAT 96
[2021-07-24 09:09] LABS: Adenovirus Not Detected (NOT DETECT); Chlamydia Pneumoniae Not Detected (NOT DETECT); Coronavirus 229E,HKU1,NL63,OC4 Not Detected (NOT DETECT); Human Metapneumovirus Not Detected (NOT DETECT); Human Rhinovirus/Enterovirus Not Detected (NOT DETECT); Influenza A Detected (NOT DETECT); Influenza A H1 Not Detected (NOT DETECT); Influenza A H1-2009 Not Detected (NOT DETECT); Influenza A H3 Detected (NOT DETECT); Influenza B Not Detected (NOT DETECT); Mycoplasma Pneumoniae Not Detected (NOT DETECT); Parainfluenza Virus Type 1 Not Detected (NOT DETECT); Parainfluenza Virus Type 2 Not Detected (NOT DETECT); Parainfluenza Virus Type 3 Not Detected (NOT DETECT); Parainfluenza Virus Type 4 Not Detected (NOT DETECT); Respiratory Syncytial Virus A Not Detected (NOT DETECT); Respiratory Syncytial Virus B Not Detected (NOT DETECT); SARS-COV-2 Not Detected (NOT DETECT)
[2021-07-24 09:24] LABS: Blood Urine Neg (Negative); Glucose Urine UA Norm (Normal); Ketones Urine Negative (Negative); Protein Urine Neg (Negative); Specific Gravity, Urine 1.015 (1.005-1.030); Urine Appearance Clear (CLEAR); Urine Color Yellow (Yellow); pH Urine 6 (5-7)
[2021-07-24 09:25] LABS: Add Urine Culture? No; Bacteria Urine TRACE /hpf; Bilirubin Urine Neg (Negative); Leukocyte Esterase Urine Negative (Negative); Mucus Urine TRACE /hpf; Nitrate Urine Negative (Negative); RBC Urine RARE /hpf (0-2); Squamous Epithelial Cell Urine 0-4 /hpf (0-5); Urobilinogen Urine 1 mg/dL (Negative); WBC Urine RARE /hpf (0-5)
[2021-07-24 09:26] LABS: Influenza A Detected (NOT DETECT); Influenza A H1 Not Detected (NOT DETECT); Influenza A H1-2009 Not Detected (NOT DETECT); Influenza A H3 Detected (NOT DETECT); Influenza B Not Detected (NOT DETECT); Results from GE
== END 2021-07-24 09:56 | disposition home or self-care (01) ==
PROVIDERS: Emergency Provider Family Medicine; PCP Family Medicine
DX: R05.9 Cough, unspecified (principal); M79.10 Myalgia, unspecified site; F17.290 Nicotine dependence, other tobacco product, uncomplicated; Z20.822 Contact with and (suspected) exposure to COVID-19
CPT/HCPCS: 71045; 80048; 81001; 85025; 87631; 87635; 96360; 99284; J7030